=== PATIENT | male | born 1930 | race Caucasian/White ===

== ENCOUNTER 2017-02-07 10:20 | Emergency (ER) | payer MEDICARE, BC ==
[~2017-02-07 10:20] MED LIST: ASPIR 8181 M1 PO; CARDURA8 M1 PO; CENTRUM SILVER1 TA PO; COZAAR100 M1 PO; DULCOLAX10 MG/SUPP RC; FLOMAX0.4 M1 PO; FUROSEMIDE40 MG PO; HYDROCODON-ACE1 EA16 PO; KEFLEX500 M4 PO; LASIX40 M1 PO; LOPID600 M1 PO; MIRALAX119 G1 PO; MULTIVITAMIN PO; NAPROSYN500 MG PO; NUCYNTA50 MG PO; QUINAPRIL40 MG PO; RIFAMPIN300 MG PO; SENOKOT-S TABLE1 TAB PO; SOMA350 MG PO; SYMBICORT 160-1 PUFF INH; TYLENOL PM EX-1 EAC1 PO; TYLENOL650 MG PO; VERAPAMIL ER240 M2 PO; VITAMIN D-1000 UNIT1 PO; ZOFRAN4 MG/2 ML IV; [UNRECOGNIZED DRUG - OTHER] IV
[2017-02-07] MEDS ORDERED: WELLBUTRIN XL150 M1 PO (11:01)
[2017-02-07] MEDS ORDERED: CELEXA20 M2 PO (11:01)
[2017-02-07] MEDS ORDERED: SENSI CARE MOIS TP (11:02)
[2017-02-07] MEDS ORDERED: TYLENOL325 M2 PO (11:03)
[2017-02-07 11:33] LABS: BASO % 0.7 % (0-2); BASO ABSOLUTE COUNT 0.1 tho/cmm (0.0-0.2); EOS % 7.2 % (0-7); EOSINOPHIL ABSOLUTE COUNT 0.5 tho/cmm (0.0-0.7); HCT-HEMATOCRIT 36.4 % (36.0-53.5); HGB-HEMOGLOBIN 12.3 gm/dl (13.5-17.0); IMMATURE GRANULOCYTES ABSOLUTE 0.01 tho/cmm (0-0.03); IMMATURE GRANULOCYTES PERCENT 0.1 % (0-0.3); LYMPH % 12.2 % (20-45); LYMPH ABSOLUTE COUNT 0.9 tho/cmm (0.8-4.5); MCH (MEAN CORPUSCULAR HGB) 30.8 pg (28.0-32.0); MCHC MEAN CORPUSCULAR HGB CONC 33.8 % (32.0-36.0); MCV (MEAN CELL VOLUME) 91.2 fl (82.0-96.0); MEAN PLATELET VOLUME 9.9 cmc (9.4-12.4); MONO % 9.5 % (0-12); MONOCYTE ABSOLUTE COUNT 0.7 tho/cmm (0.0-1.2); NEUTROPHILS % 70.3 % (40-80); PLATELET COUNT 241 tho/cmm (150-450); RED BLOOD COUNT 3.99 mil/cmm (4.40-5.70); RED CELL DISTRIBUTION WIDTH 13.8 % (12.4-16.4); WHITE BLOOD COUNT 7.1 tho/cmm (4.0-10.0)
[2017-02-07 11:41] LABS: ANION GAP 14 mmol/L (0-20); BLOOD UREA NITROGEN 18 mg/dl (6-24); CALCIUM 8.3 mg/dl (8.5-10.5); CARBON DIOXIDE-VENOUS 26 mmol/L (22-32); CHLORIDE 106 mmol/l (96-110); CREATININE 1.19 mg/dl (0.60-1.30); GLUCOSE 148 mg/dL (70-110); POTASSIUM 3.5 mmol/L (3.7-5.1); SODIUM 142 mmol/L (135-145); eGFR VALUE FOR BLACK 64 mL/Min
[2017-06-29] MEDS ORDERED: TYLENOL325 M2 PO (11:35)
[2017-06-29] MEDS ORDERED: ASPIRIN81 M1 PO (11:36)
[2017-06-29] MEDS ORDERED: POTASSIUM CHLO20 ME3 PO (11:36)
[2017-06-29] MEDS ORDERED: CARDURA4 M1 PO (11:36)
[2017-06-29] MEDS ORDERED: SINEMET 25-1001 EAC1 PO (11:36)
[2017-06-29] MEDS ORDERED: MILK OF MAGNESIA PO (11:36)
[2017-06-29] MEDS ORDERED: CELEXA20 M2 PO (11:36)
[2017-06-29] MEDS ORDERED: B-121000 MC2 PO (11:37)
[2017-06-29] MEDS ORDERED: COZAAR100 M1 PO (11:37)
[2017-06-29] MEDS ORDERED: HYDROCHLOROTHIA25 M1 PO (11:37)
[2017-06-29] MEDS ORDERED: LOPID600 M1 PO (11:37)
[2017-06-29] MEDS ORDERED: FLOMAX0.4 M1 PO (11:37)
[2017-06-29] MEDS ORDERED: MULTIVITAMINS1 EAC5 PO (11:38)
[2017-06-29] MEDS ORDERED: PROSTAT PO (11:38)
[2017-06-29] MEDS ORDERED: MIRALAX17 G2 PO (11:38)
[2017-06-29] MEDS ORDERED: CALAN SR180 M1 PO (11:38)
[2017-06-29] MEDS ORDERED: GERI-TUSSI100 MG/51 PO (11:39)
[2017-06-29] MEDS ORDERED: MEGESTROL400 MG/11 PO (11:39)
[2017-06-29] MEDS ORDERED: [UNRECOGNIZED DRUG - OTHER] TP (11:39)
[2017-06-29] MEDS ORDERED: BISCOLAX10 MG PR (11:40)
[2017-06-29] MEDS ORDERED: ACETAMINOPHEN650 MG PR (11:40)
[2017-06-29] MEDS ORDERED: FLEET ENEMA133 ML PR (11:41)
[2017-06-29] MEDS ORDERED: IPRAT-ALBUT 0.5-3 ML NEB (11:41)
== END 2017-02-07 14:01 ==
LOC: EDMED 10:20
PROVIDERS: Physician Assistant
DX: S60.222A Contusion of left hand, initial encounter (principal); M54.5 Low back pain; M25.552 Pain in left hip; Z87.891 Personal history of nicotine dependence; W18.09XA Striking against other object with subsequent fall, initial encounter

== ENCOUNTER 2017-06-03 12:59 | Inpatient (IN) | payer MEDICARE, BC ==
[~2017-06-03] VITALS: Ht 170.2 cm; Wt 66.0 kg
[~2017-06-03 12:59] MED LIST changes: +CELEXA20 M2 PO; +SENSI CARE MOIS TP; +TYLENOL325 M2 PO; +WELLBUTRIN XL150 M1 PO
[2017-06-03 13:30] LABS: BASO % 0.7 % (0-2); BASO ABSOLUTE COUNT 0.1 tho/cmm (0.0-0.2); EOS % 8.2 % (0-7); EOSINOPHIL ABSOLUTE COUNT 0.8 tho/cmm (0.0-0.7); HCT-HEMATOCRIT 34.5 % (36.0-53.5); IMMATURE GRANULOCYTES ABSOLUTE 0.05 tho/cmm (0-0.03); IMMATURE GRANULOCYTES PERCENT 0.5 % (0-0.3); LYMPH % 16.7 % (20-45); LYMPH ABSOLUTE COUNT 1.6 tho/cmm (0.8-4.5); MCH (MEAN CORPUSCULAR HGB) 31.9 pg (28.0-32.0); MCHC MEAN CORPUSCULAR HGB CONC 34.8 % (32.0-36.0); MCV (MEAN CELL VOLUME) 91.8 fl (82.0-96.0); MEAN PLATELET VOLUME 9.5 cmc (9.4-12.4); MONO % 11.2 % (0-12); MONOCYTE ABSOLUTE COUNT 1.1 tho/cmm (0.0-1.2); NEUTROPHIL ABSOLUTE COUNT 5.9 tho/cmm (1.6-8.0); NEUTROPHIL-AUTOMATED 5.9 tho/cmm (1.6-8.0); NEUTROPHILS % 62.7 % (40-80); PLATELET COUNT 278 tho/cmm (150-450); RED BLOOD COUNT 3.76 mil/cmm (4.40-5.70); RED CELL DISTRIBUTION WIDTH 13.5 % (12.4-16.4); WHITE BLOOD COUNT 9.5 tho/cmm (4.0-10.0)
[2017-06-03] MEDS ORDERED: [UNRECOGNIZED DRUG - OTHER] TP (13:37)
[2017-06-03] MEDS ORDERED: HYDROCHLOROTHIA25 M1 PO (13:43)
[2017-06-03 13:45] LABS: ALB/GLOB RATIO 0.9 (0.8-2.0); ALBUMIN 3.5 g/dl (3.5-5.0); ALKALINE PHOSPHATASE 69 U/L (33-138); ALT/SGPT 20 U/L (12-78); ANION GAP 12 mmol/L (0-20); AST/SGOT 18 U/L (10-40); BILIRUBIN,TOTAL 0.4 mg/dl (0.0-1.5); BLOOD UREA NITROGEN 32 mg/dl (6-24); CARBON DIOXIDE-VENOUS 32 mmol/L (22-32); CHLORIDE 97 mmol/l (96-110); CREATININE 2.01 mg/dl (0.60-1.30); GLUCOSE 91 mg/dL (70-110); SODIUM 138 mmol/L (135-145); eGFR VALUE FOR BLACK 34 mL/Min
[2017-06-03 13:54] LABS: ESR-ERYTHROCYTE SED RATE 45 mm/hr (0-20)
[2017-06-03 13:58] LABS: POTASSIUM 2.6 mmol/L (3.7-5.1)
[2017-06-03 15:21] LABS: URINE BILIRUBIN NEGATIVE (NEG); URINE BLOOD NEGATIVE (NEG); URINE GLUCOSE (UA) NEGATIVE (NEG); URINE KETONE NEGATIVE (NEG); URINE LEUKOCYTE ESTERASE NEGATIVE (NEG); URINE NITRITE NEGATIVE (NEG); URINE PROTEIN NEGATIVE (NEG); URINE SPECIFIC GRAVITY 1.005 (1.003-1.030)
[2017-06-03 15:22] LABS: URINE APPEARANCE CLEAR; URINE COLOR PALE YELLOW
[2017-06-04 07:09] LABS: ANION GAP 10 mmol/L (0-20); BLOOD UREA NITROGEN 24 mg/dl (6-24); CALCIUM 8.2 mg/dl (8.5-10.5); CARBON DIOXIDE-VENOUS 28 mmol/L (22-32); CHLORIDE 107 mmol/l (96-110); CREATININE 1.52 mg/dl (0.60-1.30); GLUCOSE 85 mg/dL (70-110); POTASSIUM 3.4 mmol/L (3.7-5.1); SODIUM 142 mmol/L (135-145); eGFR VALUE FOR BLACK 47 mL/Min
[2017-06-05 05:44] LABS: HGB-HEMOGLOBIN 11.5 gm/dl (13.5-17.0); PLATELET COUNT 260 tho/cmm (150-450)
[2017-06-05 05:58] LABS: ANION GAP 8 mmol/L (0-20); BLOOD UREA NITROGEN 19 mg/dl (6-24); CALCIUM 8.9 mg/dl (8.5-10.5); CARBON DIOXIDE-VENOUS 29 mmol/L (22-32); CHLORIDE 106 mmol/l (96-110); GLUCOSE 83 mg/dL (70-110); POTASSIUM 3.4 mmol/L (3.7-5.1); SODIUM 140 mmol/L (135-145); eGFR VALUE FOR BLACK 52 mL/Min
[2017-06-05 13:21] LABS: TSH-THYROID STIMULATING HORM. 3.73 uIU/ml (0.40-3.80)
[2017-06-06 11:13] LABS: ANION GAP 9 mmol/L (0-20); BLOOD UREA NITROGEN 21 mg/dl (6-24); CALCIUM 8.7 mg/dl (8.5-10.5); CARBON DIOXIDE-VENOUS 30 mmol/L (22-32); CHLORIDE 106 mmol/l (96-110); GLUCOSE 97 mg/dL (70-110); POTASSIUM 3.9 mmol/L (3.7-5.1); SODIUM 141 mmol/L (135-145); eGFR VALUE FOR BLACK 52 mL/Min
[2017-06-07 06:22] LABS: HGB-HEMOGLOBIN 11.3 gm/dl (13.5-17.0); PLATELET COUNT 292 tho/cmm (150-450)
[2017-06-07] MEDS ORDERED: MIDODRINE HCL5 M1 PO (14:18)
[2017-06-07] MEDS ORDERED: LOVENOX40 MG/0.1 SC (14:19)
[2017-06-07] MEDS ORDERED: CALAN SR180 M1 PO (14:20)
[2017-06-07] MEDS ORDERED: POTASSIUM CHLO20 ME3 PO (14:23)
[2017-06-07] MEDS ORDERED: SINEMET 25-1001 EAC1 PO (14:23)
[2017-06-07] MEDS ORDERED: MILK OF MAGNESIA PO (14:24)
== END 2017-06-07 15:35 | DRG 641 ==
LOC: EDMED → EDBD 12:59 → EDMED 12:59 → EMR2 14:53 → 5WE 14:53
PROVIDERS: Emergency Medicine; Psychiatry & Neurology Neurology; ADMIT Family Medicine
DX: E87.6 Hypokalemia (principal); N17.9 Acute kidney failure, unspecified; L89.322 Pressure ulcer of left buttock, stage 2; L89.312 Pressure ulcer of right buttock, stage 2; R53.1 Weakness; R13.10 Dysphagia, unspecified; I10 Essential (primary) hypertension; F41.9 Anxiety disorder, unspecified; M54.9 Dorsalgia, unspecified; G89.29 Other chronic pain; J44.9 Chronic obstructive pulmonary disease, unspecified; H81.09 Meniere's disease, unspecified ear; N39.41 Urge incontinence; I95.1 Orthostatic hypotension; G83.89 Other specified paralytic syndromes; Z87.891 Personal history of nicotine dependence; Z91.81 History of falling; Z82.69 Family history of other diseases of the musculoskeletal system and connective tissue; Z79.82 Long term (current) use of aspirin; Z79.899 Other long term (current) drug therapy
CPT/HCPCS: A9577; G8978-GP-CK; G8979-GP-CJ; G8980-GP-CK; G8996-GN-CJ; G8997-GN-CI; J1650; J3480; J7030